=== PATIENT | female | born 1975 | race Hispanic/Latino ===

== ENCOUNTER 2019-02-02 08:06 | Inpatient (IN) | payer MEDICARE ==
--- NOTE | 2019-02-02 08:23 | Emergency Department Report ---
History of Present Illness - General Chief Complaint: Overdose Stated Complaint: OVERDOSE Time Seen by Provider: 02/02/19 08:06 Source: patient Mode of arrival: Stretcher Limitations: No Limitations, Altered Mental Status - History of Present Illness Initial Comments: Patient is a 43-year-old female presents to emergency with suicide attempt by overdose. Patient states that she took 20 tabs of 100 mg doxepin. She states she took them last night approximately 10/06/2012. Patient states she is tired. Patient states she took it in order to commit suicide. Patient states she's been depressed and under a lot of stress and wanted to . Patient states she is not sure who called ambulance. MD Complaint: intentional overdose -: Sudden Intent: suicide attempt Context: Intentional Overdose: relationship problems, financial issues Associated Symptoms: depression Treatments Prior to Arrival: none - Related Data Home Medications Medication Instructions Recorded Confirmed Last Taken Benztropine [Cogentin] 1 mg PO QHS 02/02/19 02/02/19 Unknown Divalproex ER [DepaKOTE ER] 1,000 mg PO QHS 02/02/19 02/02/19 Unknown Doxepin [SINEquan] 100 mg PO QHS 02/02/19 02/02/19 Unknown Allergies Allergy/AdvReac Type Severity Reaction Status Date / Time No Known Allergies Allergy Unverified 02/02/19 08:22 ED Review of Systems ROS: Stated complaint: OVERDOSE Other details as noted in HPI Constitutional: denies: chills, fever Eyes: denies: eye pain, eye discharge, vision change ENT: denies: ear pain, throat pain Respiratory: denies: cough, shortness of breath, wheezing Cardiovascular: denies: chest pain, palpitations Endocrine: no symptoms reported Gastrointestinal: denies: abdominal pain, nausea, diarrhea Genitourinary: denies: urgency, dysuria, discharge Musculoskeletal: denies: back pain, joint swelling, arthralgia Skin: denies: rash, lesions Neurological: denies: headache, weakness, paresthesias Psychiatric: denies: anxiety, depression Hematological/Lymphatic: denies: easy bleeding, easy bruising ED Past Medical Hx - Past Medical History Previous Medical History?: Yes Hx Psychiatric Treatment: Yes Additional medical history: [employer], privious sucide attempts - Surgical History Past Surgical History?: No - Family History Family history: no significant - Social History Smoking Status: Current Every Day Smoker Substance Use Type: None - Medications Home Medications: Home Medications Medication Instructions Recorded Confirmed Last Taken Type Benztropine [Cogentin] 1 mg PO QHS 02/02/19 02/02/19 Unknown History Divalproex ER [DepaKOTE ER] 1,000 mg PO QHS 02/02/19 02/02/19 Unknown History Doxepin [SINEquan] 100 mg PO QHS 02/02/19 02/02/19 Unknown History ED Physical Exam - General Limitations: No Limitations, Altered Mental Status General appearance: alert, in no apparent distress, lethargic (but arousable) - Head Head exam: Present: atraumatic, normocephalic - Eye Eye exam: Present: normal appearance, PERRL Pupils: Present: normal accommodation - ENT ENT exam: Present: mucous membranes dry - Neck Neck exam: Present: normal inspection - Respiratory Respiratory exam: Present: normal lung sounds bilaterally. Absent: respiratory distress - Cardiovascular Cardiovascular Exam: Present: regular rate, normal rhythm. Absent: systolic murmur, diastolic murmur, rubs, gallop - GI/Abdominal GI/Abdominal exam: Present: soft, normal bowel sounds - Extremities Exam Extremities exam: Present: normal inspection - Back Exam Back exam: Present: normal inspection - Neurological Exam Neurological exam: Present: oriented X3 - Expanded Neurological Exam Expanded Patient oriented to: Present: person, place, time Best Eye Response ([place]): (2) open to pain Best Motor Response ([place]): (6) obeys commands Best Verbal Response ([place]): (5) oriented Amee Total: 13 - Psychiatric Psychiatric exam: Present: depressed - Skin Skin exam: Present: warm, dry, intact, normal color. Absent: rash ED Course Vital Signs 02/02/19 02/02/19 02/02/19 08:09 08:11 08:16 Temperature 97.7 F 98.6 F Pulse Rate 102 H 96 H 95 H Respiratory 13 12 Rate Blood Pressure 153/98 153/98 O2 Sat by Pulse 95 95 Oximetry 02/02/19 02/02/19 02/02/19 08:30 08:46 09:00 Temperature Pulse Rate 101 H 93 H 87 Respiratory 14 13 11 L Rate Blood Pressure 144/96 144/98 141/100 O2 Sat by Pulse 93 98 100 Oximetry 02/02/19 02/02/1902/02/19 09:15 09:30 09:46 Temperature Pulse Rate 84 83 86 Respiratory 11 L 12 11 L Rate Blood Pressure 151/106 151/106 137/92 O2 Sat by Pulse 100 100 100 Oximetry 02/02/19 02/02/19 02/02/19 10:00 10:16 10:30 Temperature Pulse Rate 99 H 127 H 142 H Respiratory 16 24 20 Rate Blood Pressure 160/109 166/111 160/109 O2 Sat by Pulse 100 97 99 Oximetry 02/02/19 02/02/19 02/02/19 10:46 11:00 11:16 Temperature Pulse Rate 113 H 116 H 100 H Respiratory 17 15 12 Rate Blood Pressure 157/104 157/104 153/105 O2 Sat by Pulse 97 98 98 Oximetry 02/02/19 02/02/19 02/02/19 11:30 11:46 11:48 Temperature Pulse Rate 98 H 86 Respiratory 11 L 12 12 Rate Blood Pressure 154/98 147/93 O2 Sat by Pulse 99 100 100 Oximetry 02/02/19 12:02 Temperature Pulse Rate Respiratory 12 Rate Blood Pressure O2 Sat by Pulse 100 Oximetry - Reevaluation(s) Reevaluation #1: Initial evaluation done. Patient has overdosed on doxepin and poison control will be called. 1013 signed 02/02/19 08:06 MIGUEL SALINAS [facility] 1975 [id number] 02/02/19 08:15 - Nurse Note by JEYSON WING Acct Num: [id number] : 1975 Patient Age: 43 Called Poison Control at this time. Initial treatment for Doxepin 100mg, 20 cap intake at approx [id number] on 02/01/19 is Char[place]. Since pt is lethargic and therefore an aspiration risk, poison control recommends holding charcoal. Pt recommended to be a critical care admit. Pt at risk for ventricular dysrhythmia, widened QRS, seizures, initial hypertension the hypotension. Fluids to be given for hypotension, if not responding to fluids, Levophed is the first line v asopressor. Labs: ASA, tylenol, ETOH, and anion gap. 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 Baseling EKG needed. Spoke with Héctor at Poison Control. Notified Dr. Brown of these details, no new orders at this time. Received pt to ED1 pt came from [facility]. Pt awake, but lethargic, VSS, pt placed on equipment monitor phototypesetting, IV access attempted, EKG in progress. Pt reports taking "20" Doxepin at approx [phone] "last night". Pt reports being hearing impaired and states "I wanted to kill myself". Dr. Brown placed pt on 1013. Will continue to monitor pt. Initialized on 02/02/19 08:15 - END OF NOTE Reevaluation #2: discussed all results and plan of care with patient. Patient was admitted to the hospitalist service and into the ICU. 02/02/19 10:27 - Consultations Consultation #1: Hospitalist consulted for admission. Hospitalist to admit and assume care of patient. Bridging orders were placed 02/02/19 10:27 ED Medical Decision Making - Lab Data Result diagrams: 02/02/19 08:41 02/02/19 08:41 - EKG Data -: EKG Interpreted by Me EKG shows normal: sinus rhythm, axis, intervals, QRS complexes, ST-T waves Rate: normal - Medical Decision Making Patient is a 43-year-old female that presents emergency room with complaints of overdose doxepin. Patient lethargic. Poison control consulted. Based on pulse mitral recommendations patient was admitted to the hospitalist service and into the ICU for observation. Poison control recommendations Placed on chart. - Differential Diagnosis od, si. dep Critical Care Time: Yes Critical care attestation.: If time is entered above; I have spent that time in minutes in the direct care of this critically ill patient, excluding procedure time. Critical Care Time: 45 minutes ED Disposition Clinical Impression: Suicidal ideation Suicide attempt by substance overdose Qualifiers: Encounter type: initial encounter Qualified Code(s): T65.92XA - Toxic effect of unspecified substance, intentional self-harm, initial encounter Overdose Qualifiers: Encounter type: initial encounter Injury intent: intentional self-harm Qualified Code(s): T50.902A - Poisoning by unspecified drugs, medicaments and biological substances, intentional self-harm, initial encounter Disposition: 09 OP ADMIT IP TO THIS HOSP Is pt being admited?: Yes Does the pt Need Aspirin: No Condition: Critical Time of Disposition: 10:30
[2019-02-02 09:13] LABS: Hemoglobin 15.5 gm/dl (10.1-14.3); Mean Corpuscular HGB Conc 34 % (30-34); Mean Corpuscular Volume 91 fl (79-97); Red Blood Count 4.96 M/mm3 (3.65-5.03)
[2019-02-02 10:19] LABS: BUN/Creatinine Ratio 9; Blood Urea Nitrogen 6 mg/dL (7-17); Calcium 9.3 mg/dL (8.4-10.2); Hemolysis Index 37
[2019-02-02 10:20] LABS: Eosinophils % (Manual) 0 % (0.0-4.3); Total Cells Counted 100
[2019-02-02 10:21] LABS: Anisocytosis Few; Platelet Estimate Consistent w Auto; Poikilocytosis Few
[2019-02-02 10:22] LABS: Platelet Count 140 K/mm3 (140-440)
[2019-02-02 11:33] LABS: Bacteria,Urine 1+ /HPF (Negative); Bilirubin,Urine NEG (Negative); Blood,Urine NEG (Negative); Color,Urine Yellow (Yellow); Mucus,Urine FEW /HPF; Protein,Urine <15 mg/dL mg/dL (Negative); Urobilinogen,Urine < 2.0 mg/dL (<2.0)
[2019-02-02 11:38] LABS: Amphetamine Screen,Urine PRESUMPTIVE NEGATIVE; Benzodiazepines Screen,Urine PRESUMPTIVE NEGATIVE; Cannabinoid Screen,Urine PRESUMPTIVE NEGATIVE; Cocaine Screen,Urine PRESUMPTIVE NEGATIVE; Methadone Screen,Urine PRESUMPTIVE NEGATIVE; Opiate Screen,Urine PRESUMPTIVE NEGATIVE
--- NOTE | 2019-02-02 15:32 | History and Physical Report ---
History of Present Illness Date of examination: 02/02/19 Date of admission: 02/02/19 10:30 Chief complaint: Suicide attempt History of present illness: 43-year-old female with medical history significant for depression was presented to the emergency department by EMS for suicide attempt. Patient's was drowsy and was not able to give history. History is obtained per chart review and from ER doctor. Patient took twenty 100 mg doxepin pills with the intention of killing her self. Patient was depressed and trying to kill her self. No seizure activity or termers. Review of systems couldn't be obtained because of drowsiness. Past History Past Medical History: other (depression) Past Surgical History: Other (couldn't be obtained because of patient's drowsy) Social history: other (couldn't be obtained because of patient's drowsy) Family history: other (couldn't be obtained because of patient's drowsy) Medications and Allergies Allergies Allergy/AdvReac Type Severity Reaction Status Date / Time No Known Allergies Allergy Unverified 02/02/19 08:22 Home Medications Medication Instructions Recorded Confirmed Last Taken Type Benztropine [Cogentin] 1 mg PO QHS 02/02/19 02/02/19 Unknown History Divalproex ER [DepaKOTE ER] 1,000 mg PO QHS 02/02/19 02/02/19 Unknown History Doxepin [SINEquan] 100 mg PO QHS 02/02/19 02/02/19 Unknown History Review of Systems ROS unobtainable: due to mental status (couldn't be obtained because of patient's drowsy) Exam - Physical Exam Narrative exam: Not in cardiopulmonary distress. Patient is drowsy The patient is obese. Vital signs as documented. Head exam is unremarkable. No scleral icterus . Neck is without jugular venous distension, thyromegaly, or carotid bruits. Lungs are clear to auscultation. Cardiac exam reveals regular rate and Rhythm. Abdominal exam reveals normal bowel sounds, no masses, no organomegaly and no aortic enlargement. Extremities are nonedematous and both femoral and pedal pulses are normal. SENIOR BUSINESS MANAGER: Drowsy. No focal weakness. - Constitutional Vitals: Temp Pulse Resp BP Pulse Ox 98.6 F 86 12 147/93 100 02/02/19 08:16 02/02/19 11:46 02/02/19 12:02 02/02/19 11:46 02/02/19 12:02 Results - Labs CBC & Chem 7: 02/02/19 08:41 02/02/19 08:41 Labs: Laboratory Last Values WBC 5.8 K/mm3 (4.5-11.0) 02/02/19 08:41 RBC 4.96 M/mm3 (3.65-5.03) 02/02/19 08:41 Hgb 15.5 gm/dl (10.1-14.3) H 02/02/19 08:41 Hct 45.0 % (30.3-42.9) H 02/02/19 08:41 MCV 91 fl (79-97) 02/02/19 08:41 MCH 31 pg (28-32) 02/02/19 08:41 MCHC 34 % (30-34) 02/02/19 08:41 RDW 14.0 % (13.2-15.2) 02/02/19 08:41 Plt Count 140 K/mm3 (140-440) 02/02/19 08:41 Add Manual Diff Complete 02/02/19 08:41 Total Counted 100 02/02/19 08:41 Seg Neuts % (Manual) 59.0 % (40.0-70.0) 02/02/19 08:41 Band Neutrophils % 0 % 02/02/19 08:41 Lymphocytes % (Manual) 28.0 % (13.4-35.0) 02/02/19 08:41 Reactive Lymphs % (Man) 0 % 02/02/19 08:41 Monocytes % (Manual) 11.0 % (0.0-7.3) H 02/02/19 08:41 Eosinophils % (Manual) 0 % (0.0-4.3) 02/02/19 08:41 Basophils % (Manual) 2.0 % (0.0-1.8) H 02/02/19 08:41 Metamyelocytes % 0 % 02/02/19 08:41 Myelocytes % 0 % 02/02/19 08:41 Promyelocytes % 0 % 02/02/19 08:41 Blast Cells % 0 % 02/02/19 08:41 Nucleated RBC % Not Reportable 02/02/19 08:41 Seg Neutrophils # Man 0.0 K/mm3 (1.8-7.7) L 02/02/19 08:41 Band Neutrophils # 0.0 K/mm3 02/02/19 08:41 Lymphocytes # (Manual) 0.0 K/mm3 (1.2-5.4) L 02/02/19 08:41 Abs React Lymphs (Man) 0.0 K/mm3 02/02/19 08:41 Monocytes # (Manual) 0.0 K/mm3 (0.0-0.8) 02/02/19 08:41 Eosinophils # (Manual) 0.0 K/mm3 (0.0-0.4) 02/02/19 08:41 Basophils # (Manual) 0.0 K/mm3 (0.0-0.1) 02/02/19 08:41 Metamyelocytes # 0.0 K/mm3 02/02/19 08:41 Myelocytes # 0.0 K/mm3 02/02/19 08:41 Promyelocytes # 0.0 K/mm3 02/02/19 08:41 Blast Cells # 0.0 K/mm3 02/02/19 08:41 WBC Morphology Not Reportable 02/02/19 08:41 Hypersegmented Neuts Not Reportable 02/02/19 08:41 Hyposegmented Neuts Not Reportable 02/02/19 08:41 Hypogranular Neuts Not Reportable 02/02/19 08:41 Smudge Cells Not Reportable 02/02/19 08:41 Toxic Granulation Not Reportable 02/02/19 08:41 Toxic Vacuolation Not Reportable 02/02/19 08:41 Dohle Bodies Not Reportable 02/02/19 08:41 Pelger-Huet Anomaly Not Reportable 02/02/19 08:41 Sadie Rods Not Reportable 02/02/19 08:41 Platelet Estimate Consistent w auto 02/02/19 08:41 Clumped Platelets Not Reportable 02/02/19 08:41 Plt Clumps, EDTA Not Reportable 02/02/19 08:41 Large Platelets Not Reportable 02/02/19 08:41 Giant Platelets Not Reportable 02/02/19 08:41 Platelet Satelliting Not Reportable 02/02/19 08:41 Plt Morphology Comment Not Reportable 02/02/19 08:41 RBC Morphology Not Reportable 02/02/19 08:41 Dimorphic RBCs Not Reportable 02/02/19 08:41 Polychromasia Not Reportable 02/02/19 08:41 Hypochromasia Not Reportable 02/02/19 08:41 Poikilocytosis Few 02/02/19 08:41 Anisocytosis Few 02/02/19 08:41 Microcytosis Not Reportable 02/02/19 08:41 Macrocytosis Not Reportable 02/02/19 08:41 Spherocytes Not Reportable 02/02/19 08:41 Pappenheimer Bodies Not Reportable 02/02/19 08:41 Sickle Cells Not Reportable 02/02/19 08:41 Target Cells Not Reportable 02/02/19 08:41 Tear Drop Cells Not Reportable 02/02/19 08:41 Ovalocytes Not Reportable 02/02/19 08:41 Helmet Cells Not Reportable 02/02/19 08:41 [place] Bodies Not Reportable 02/02/19 08:41 Marlette Rings Not Reportable 02/02/19 08:41 Hi Hat Cells Not Reportable 02/02/19 08:41 Bite Cells Not Reportable 02/02/19 08:41 Crenated Cell Not Reportable 02/02/19 08:41 Elliptocytes Not Reportable 02/02/19 08:41 Acanthocytes (Spur) Not Reportable 02/02/19 08:41 Rouleaux Not Reportable 02/02/19 08:41 Hemoglobin C Crystals Not Reportable 02/02/19 08:41 Schistocytes Not Reportable 02/02/19 08:41 Malaria parasites Not Reportable 02/02/19 08:41 Homero Bodies Not Reportable 02/02/19 08:41 Hem Pathologist Commnt No 02/02/19 08:41 Sodium 139 mmol/L (137-145) 02/02/19 08:41 Potassium 3.9 mmol/L (3.6-5.0) 02/02/19 08:41 Chloride 102.4 mmol/L (98-107) 02/02/19 08:41 Carbon Dioxide 21 mmol/L (22-30) L 02/02/19 08:41 Anion Gap 20 mmol/L 02/02/19 08:41 BUN 6 mg/dL (7-17) L 02/02/19 08:41 Creatinine 0.7 mg/dL (0.7-1.2) 02/02/19 08:41 Estimated GFR > 60 ml/min 02/02/19 08:41 BUN/Creatinine Ratio 9 % 02/02/19 08:41 Glucose 108 mg/dL (65-100) H 02/02/19 08:41 Osmolality 293 Mosm/kg 02/02/19 Unknown Calcium 9.3 mg/dL (8.4-10.2) 02/02/19 08:41 HCG, Qual Negative (Negative) 02/02/19 08:41 Urine Color Yellow (Yellow) 02/02/19 Unknown Urine Turbidity Clear (Clear) 02/02/19 Unknown Urine pH 7.0 (5.0-7.0) 02/02/19 Unknown Ur Specific [place] 1.008 (1.003-1.030) 02/02/19 Unknown Urine Protein <15 mg/dl mg/dL (Negative) 02/02/19 Unknown Urine Glucose (UA) Neg mg/dL (Negative) 02/02/19 Unknown Urine Ketones Tr mg/dL (Negative) 02/02/19 Unknown Urine Blood Neg (Negative) 02/02/19 Unknown Urine Nitrite Neg (Negative) 02/02/19 Unknown Urine Bilirubin Neg (Negative) 02/02/19 Unknown Urine Urobilinogen < 2.0 mg/dL (<2.0) 02/02/19 Unknown Ur Leukocyte Esterase Neg (Negative) 02/02/19 Unknown Urine WBC (Auto) 2.0 /HPF (0.0-6.0) 02/02/19 Unknown Urine RBC (Auto) 1.0 /HPF (0.0-6.0) 02/02/19 Unknown U Epithel Cells (Auto) 3.0 /HPF (0-13.0) 02/02/19 Unknown Urine Bacteria (Auto) 1+ /HPF (Negative) 02/02/19 Unknown Urine Mucus Few /HPF 02/02/19 Unknown Salicylates < 0.3 mg/dL (2.8-20.0) L 02/02/19 08:41 Urine Opiates Screen Presumptive negative 02/02/19 Unknown Urine Methadone Screen Presumptive negative 02/02/19 Unknown Acetaminophen < 5.0 ug/mL (10.0-30.0) L 02/02/19 08:41 Ur Barbiturates Screen Presumptive negative 02/02/19 Unknown Ur Phencyclidine Scrn Presumptive negative 02/02/19 Unknown Ur Amphetamines Screen Presumptive negative 02/02/19 Unknown U Benzodiazepines Scrn Presumptive negative 02/02/19 Unknown Urine Cocaine Screen Presumptive negative 02/02/19 Unknown U Marijuana (THC) Screen Presumptive negative 02/02/19 Unknown Drugs of Abuse Note Disclamer 02/02/19 Unknown Plasma/Serum Alcohol < 0.01 % (0-0.07) 02/02/19 08:41 Assessment and Plan Assessment and plan: TCA overdose - We will monitor the patient on cardiac monitoring for QT and arrhythmia, EKG normal - Monitor for seizure, blood pressure fluctuation, tremers - ED doctor discussed with poison control and recommend ICU monitoring for 23 hours - We'll do UDS, CT head for drowsiness - Chest x-ray to rule out aspiration Suicidal attempt - Urgent Mental health consult placed Depression - Follow and his recommendation Due to prophylaxis - Lovenox Disposition - Admit to ICU Advance Directives: Yes VTE prophylaxis?: Chemical Plan of care discussed with patient/family: Yes
--- NOTE | 2019-02-02 16:47 | Cat Scan Report ---
PROCEDURE: CT HEAD/BRAIN WO CON TECHNIQUE: Computerized tomography of the head was performed without contrast material. Imaging was obtained in axial increments. CT DOSE LENGTH PRODUCT: 805.4 mGycm HISTORY: drowsy COMPARISONS: None . FINDINGS: The ventricular system is normal in size and configuration. There is no evidence for parenchymal volu me loss. There is no evidence for mass lesion, mass effect, midline shift, acute intracranial hemorrhage, or a cute ischemia/ infarction. No evidence for acute skull fracture is seen. No abnormality in the overlying scalp soft tissues is s een. Visualized paranasal sinuses are clear. IMPRESSION: No acute intracranial process noted. This document is electronically signed by Kellie Coffman MD., February 02 2019 04:45:16 PM ET
--- NOTE | 2019-02-02 17:45 | XRay Report ---
PROCEDURE: XR CHEST 1V AP HISTORY: Altered mental status FINDINGS: Single frontal view of the chest was acquired. The heart is normal in size. There is a left basilar infiltrate, atelectasis versus pneumonia. The right lung is clear. IMPRESSION: Left basilar infiltrate This document is electronically signed by Tyler Jensen MD., February 02 2019 05:43:47 PM ET
[2019-02-03 02:26] LABS: Alanine Aminotransferase 9 units/L (7-56); Albumin 3.8 g/dL (3.9-5); BUN/Creatinine Ratio 8; Blood Urea Nitrogen 6 mg/dL (7-17); Calcium 9.1 mg/dL (8.4-10.2); Hemolysis Index 8
[2019-02-03 05:34] LABS: BUN/Creatinine Ratio 9; Blood Urea Nitrogen 6 mg/dL (7-17); Calcium 9.1 mg/dL (8.4-10.2); Hemolysis Index 141
[2019-02-03 08:56] LABS: Amphetamine Screen,Urine PRESUMPTIVE NEGATIVE; Benzodiazepines Screen,Urine PRESUMPTIVE NEGATIVE; Cannabinoid Screen,Urine PRESUMPTIVE NEGATIVE; Cocaine Screen,Urine PRESUMPTIVE NEGATIVE; Methadone Screen,Urine PRESUMPTIVE NEGATIVE; Opiate Screen,Urine PRESUMPTIVE NEGATIVE
--- NOTE | 2019-02-03 10:01 | Progress Note ---
Assessment and Plan Assessment and plan: TCA overdose - We will monitor the patient on cardiac monitoring for QT and arrhythmia, EKG normal - Monitor for seizure, blood pressure fluctuation, tremers - poison control and recommend ICU monitoring for 23 hours, 23 hours past and patient is transferred to medical floor with remote telemetry -UDS was negative, CT head was negative, - Chest x-ray showed right basilar infiltrate, no fever, no leukocytosis, no cough; will monitor, noted to start antibiotics for now Suicidal attempt - Urgent Mental health consult placed - Patient on 1012, need to be 1:1 - Mental health po[place] inspector recommend inpatient psych transfer when stable Depression - Follow mental health recommendation Due to prophylaxis - Lovenox Disposition - Transferred to medical with remote telemetry History Interval history: Patient was seen and evaluated this morning, patient says she wants to go home. Patient states she is going to kill herself. Hospitalist Physical - Physical exam Narrative exam: Not in cardiopulmonary distress. Patient is drowsy The patient is obese. Vital signs as documented. Head exam is unremarkable. No scleral icterus . Neck is without jugular venous distension, thyromegaly, or carotid bruits. Lungs are clear to auscultation. Cardiac exam reveals regular rate and Rhythm. Abdominal exam reveals normal bowel sounds, no masses, no organomegaly and no aortic enlargement. Extremities are nonedematous and both femoral and pedal pulses are normal. PEDIATRIC CLINICAL NURSE SPECIALIST: Drowsy. No focal weakness. - Constitutional Vitals: Temp Pulse Resp BP Pulse Ox 98.3 F 97 H 18 130/88 98 02/03/19 07:56 02/03/19 07:56 02/03/19 07:56 02/03/19 07:56 02/03/19 07:56 Results - Labs CBC & Chem 7: 02/02/19 08:41 02/03/19 05:04 Labs: Laboratory Last Values WBC 5.8 K/mm3 (4.5-11.0) 02/02/19 08:41 RBC 4.96 M/mm3 (3.65-5.03) 02/02/19 08:41 Hgb 15.5 gm/dl (10.1-14.3) H 02/02/19 08:41 Hct 45.0 % (30.3-42.9) H 02/02/19 08:41 MCV 91 fl (79-97) 02/02/19 08:41 MCH 31 pg (28-32) 02/02/19 08:41 MCHC 34 % (30-34) 02/02/19 08:41 RDW 14.0 % (13.2-15.2) 02/02/19 08:41 Plt Count 140 K/mm3 (140-440) 02/02/19 08:41 Add Manual Diff Complete 02/02/19 08:41 Total Counted 100 02/02/19 08:41 Seg Neuts % (Manual) 59.0 % (40.0-70.0) 02/02/19 08:41 Band Neutrophils % 0 % 02/02/19 08:41 Lymphocytes % (Manual) 28.0 % (13.4-35.0) 02/02/19 08:41 Reactive Lymphs % (Man) 0 % 02/02/19 08:41 Monocytes % (Manual) 11.0 % (0.0-7.3) H 02/02/19 08:41 Eosinophils % (Manual) 0 % (0.0-4.3) 02/02/19 08:41 Basophils % (Manual) 2.0 % (0.0-1.8) H 02/02/19 08:41 Metamyelocytes % 0 % 02/02/19 08:41 Myelocytes % 0 % 02/02/19 08:41 Promyelocytes % 0 % 02/02/19 08:41 Blast Cells % 0 % 02/02/19 08:41 Nucleated RBC % Not Reportable 02/02/19 08:41 Seg Neutrophils # Man 0.0 K/mm3 (1.8-7.7) L 02/02/19 08:41 Band Neutrophils # 0.0 K/mm3 02/02/19 08:41 Lymphocytes # (Manual) 0.0 K/mm3 (1.2-5.4) L 02/02/19 08:41 Abs React Lymphs (Man) 0.0 K/mm3 02/02/19 08:41 Monocytes # (Manual) 0.0 K/mm3 (0.0-0.8) 02/02/19 08:41 Eosinophils # (Manual) 0.0 K/mm3 (0.0-0.4) 02/02/19 08:41 Basophils # (Manual) 0.0 K/mm3 (0.0-0.1) 02/02/19 08:41 Metamyelocytes # 0.0 K/mm3 02/02/19 08:41 Myelocytes # 0.0 K/mm3 02/02/19 08:41 Promyelocytes # 0.0 K/mm3 02/02/19 08:41 Blast Cells # 0.0 K/mm3 02/02/19 08:41 WBC Morphology Not Reportable 02/02/19 08:41 Hypersegmented Neuts Not Reportable 02/02/19 08:41 Hyposegmented Neuts Not Reportable 02/02/19 08:41 Hypogranular Neuts Not Reportable 02/02/19 08:41 Smudge Cells Not Reportable 02/02/19 08:41 Toxic Granulation Not Reportable 02/02/19 08:41 Toxic Vacuolation Not Reportable 02/02/19 08:41 Dohle Bodies Not Reportable 02/02/19 08:41 Pelger-Huet Anomaly Not Reportable 02/02/19 08:41 Sadie Rods Not Reportable 02/02/19 08:41 Platelet Estimate Consistent w auto 02/02/19 08:41 Clumped Platelets Not Reportable 02/02/19 08:41 Plt Clumps, EDTA Not Reportable 02/02/19 08:41 Large Platelets Not Reportable 02/02/19 08:41 Giant Platelets Not Reportable 02/02/19 08:41 Platelet Satelliting Not Reportable 02/02/19 08:41 Plt Morphology Comment Not Reportable 02/02/19 08:41 RBC Morphology Not Reportable 02/02/19 08:41 Dimorphic RBCs Not Reportable 02/02/19 08:41 Polychromasia Not Reportable 02/02/19 08:41 Hypochromasia Not Reportable 02/02/19 08:41 Poikilocytosis Few 02/02/19 08:41 Anisocytosis Few 02/02/19 08:41 Microcytosis Not Reportable 02/02/19 08:41 Macrocytosis Not Reportable 02/02/19 08:41 Spherocytes Not Reportable 02/02/19 08:41 Pappenheimer Bodies Not Reportable 02/02/19 08:41 Sickle Cells Not Reportable 02/02/19 08:41 Target Cells Not Reportable 02/02/19 08:41 Tear Drop Cells Not Reportable 02/02/19 08:41 Ovalocytes Not Reportable 02/02/19 08:41 Helmet Cells Not Reportable 02/02/19 08:41 Carbajal-[place] Bodies Not Reportable 02/02/19 08:41 [place] Rings Not Reportable 02/02/19 08:41 [place] Cells Not Reportable 02/02/19 08:41 Bite Cells Not Reportable 02/02/19 08:41 Crenated Cell Not Reportable 02/02/19 08:41 Elliptocytes Not Reportable 02/02/19 08:41 Acanthocytes (Spur) Not Reportable 02/02/19 08:41 Rouleaux Not Reportable 02/02/19 08:41 Hemoglobin C Crystals Not Reportable 02/02/19 08:41 Schistocytes Not Reportable 02/02/19 08:41 Malaria parasites Not Reportable 02/02/19 08:41 Homero Bodies Not Reportable 02/02/19 08:41 Hem Pathologist Commnt No 02/02/19 08:41 Sodium 139 mmol/L (137-145) 02/03/19 05:04 Potassium 4.3 mmol/L (3.6-5.0) 02/03/19 05:04 Chloride 102.3 mmol/L (98-107) 02/03/19 05:04 Carbon Dioxide 23 mmol/L (22-30) 02/03/19 05:04 Anion Gap 18 mmol/L 02/03/19 05:04 BUN 6 mg/dL (7-17) L 02/03/19 05:04 Creatinine 0.7 mg/dL (0.7-1.2) 02/03/19 05:04 Estimated GFR > 60 ml/min 02/03/19 05:04 BUN/Creatinine Ratio 9 % 02/03/19 05:04 Glucose 86 mg/dL (65-100) 02/03/19 05:04 Osmolality 288 Mosm/kg 02/03/19 01:46 Calcium 9.1 mg/dL (8.4-10.2) 02/03/19 05:04 Total Bilirubin 0.70 mg/dL (0.1-1.2) 02/03/19 01:46 AST 17 units/L (5-40) 02/03/19 01:46 ALT 9 units/L (7-56) 02/03/19 01:46 Alkaline Phosphatase 73 units/L (35-129) 02/03/19 01:46 Total Protein 7.0 g/dL (6.3-8.2) 02/03/19 01:46 Albumin 3.8 g/dL (3.9-5) L 02/03/19 01:46 Albumin/Globulin Ratio 1.2 % 02/03/19 01:46 HCG, Qual Negative (Negative) 02/02/19 08:41 Urine Color Yellow (Yellow) 02/02/19 Unknown Urine Turbidity Clear (Clear) 02/02/19 Unknown Urine pH 7.0 (5.0-7.0) 02/02/19 Unknown Ur Specific [place] 1.008 (1.003-1.030) 02/02/19 Unknown Urine Protein <15 mg/dl mg/dL (Negative) 02/02/19 Unknown Urine Glucose (UA) Neg mg/dL (Negative) 02/02/19 Unknown Urine Ketones Tr mg/dL (Negative) 02/02/19 Unknown Urine Blood Neg (Negative) 02/02/19 Unknown Urine Nitrite Neg (Negative) 02/02/19 Unknown Urine Bilirubin Neg (Negative) 02/02/19 Unknown Urine Urobilinogen < 2.0 mg/dL (<2.0) 02/02/19 Unknown Ur Leukocyte Esterase Neg (Negative) 02/02/19 Unknown Urine WBC (Auto) 2.0 /HPF (0.0-6.0) 02/02/19 Unknown Urine RBC (Auto) 1.0 /HPF (0.0-6.0) 02/02/19 Unknown U Epithel Cells (Auto) 3.0 /HPF (0-13.0) 02/02/19 Unknown Urine Bacteria (Auto) 1+ /HPF (Negative) 02/02/19 Unknown Urine Mucus Few /HPF 02/02/19 Unknown Salicylates < 0.3 mg/dL (2.8-20.0) L 02/02/19 08:41 Urine Opiates Screen Presumptive negative 02/03/19 08:30 Urine Methadone Screen Presumptive negative 02/03/19 08:30 Acetaminophen < 5.0 ug/mL (10.0-30.0) L 02/02/19 08:41 Ur Barbiturates Screen Presumptive negative 02/03/19 08:30 Ur Phencyclidine Scrn Presumptive negative 02/03/19 08:30 Ur Amphetamines Screen Presumptive negative 02/03/19 08:30 U Benzodiazepines Scrn Presumptive negative 02/03/19 08:30 Urine Cocaine Screen Presumptive negative 02/03/19 08:30 U Marijuana (THC) Screen Presumptive negative 02/03/19 08:30 Drugs of Abuse Note Disclamer 02/03/19 08:30 Plasma/Serum Alcohol < 0.01 % (0-0.07) 02/02/19 08:41 Active Medications - Current Medications Current Medications: Generic Name Dose Route Start Last Admin Trade Name Freq PRN Reason Stop Dose Admin Dextrose/Sodium Chloride 1,000 mls @ 75 mls/hr 02/02/19 16:00 D5/0.45ns IV DIRECT PERLITA
[2019-02-03] MEDS: D5/0.45NS 1,000 ML IV SCH (15:23)
[2019-02-04] MEDS: D5/0.45NS 1,000 ML IV SCH ×2 (06:17→17:24)
--- NOTE | 2019-02-04 11:04 | Progress Note ---
Assessment and Plan Assessment and plan: TCA overdose - We will monitor the patient on cardiac monitoring for QT and arrhythmia, EKG normal - Monitor for seizure, blood pressure fluctuation, tremers - poison control and recommend ICU monitoring for 23 hours, 23 hours past and patient is transferred to medical floor with remote telemetry -UDS was negative, CT head was negative, - Chest x-ray showed right basilar infiltrate, no fever, no leukocytosis, no cough; will monitor, noted to start antibiotics for now Suicidal attempt - Patient on 101, need to be 1:1 - Mental health process manufacturing engineer recommend inpatient psych transferwhen stable Depression - Follow mental health recommendation Due to prophylaxis - Lovenox Disposition - patient is medically stable for inpatient psych transfer. History Interval history: Patient was seen and evaluated this morning, patient was alert and oriented. Hospitalist Physical - Physical exam Narrative exam: Not in cardiopulmonary distress. Patient is drowsy The patient is obese. Vital signs as documented. Head exam is unremarkable. No scleral icterus . Neck is without jugular venous distension, thyromegaly, or carotid bruits. Lungs are clear to auscultation. Cardiac exam reveals regular rate and Rhythm. Abdominal exam reveals normal bowel sounds, no masses, no organomegaly and no aortic enlargement. Extremities are nonedematous and both femoral and pedal pulses are normal. LIGHTING SPECIALIST: Drowsy. No focal weakness. - Constitutional Vitals: Temp Pulse Resp BP Pulse Ox 98.6 F 97 H 17 149/103 96 02/03/19 12:44 02/03/19 12:44 02/03/19 21:38 02/03/19 12:44 02/03/19 21:38 Results - Labs CBC & Chem 7: 02/02/19 08:41 02/03/19 05:04 Labs: Laboratory Last Values WBC 5.8 K/mm3 (4.5-11.0) 02/02/19 08:41 RBC 4.96 M/mm3 (3.65-5.03) 02/02/19 08:41 Hgb 15.5 gm/dl (10.1-14.3) H 02/02/19 08:41 Hct 45.0 % (30.3-42.9) H 02/02/19 08:41 MCV 91 fl (79-97) 02/02/19 08:41 MCH 31 pg (28-32) 02/02/19 08:41 MCHC 34 % (30-34) 02/02/19 08:41 RDW 14.0 % (13.2-15.2) 02/02/19 08:41 Plt Count 140 K/mm3 (140-440) 02/02/19 08:41 Add Manual Diff Complete 02/02/19 08:41 Total Counted 100 02/02/19 08:41 Seg Neuts % (Manual) 59.0 % (40.0-70.0) 02/02/19 08:41 Band Neutrophils % 0 % 02/02/19 08:41 Lymphocytes % (Manual) 28.0 % (13.4-35.0) 02/02/19 08:41 Reactive Lymphs % (Man) 0 % 02/02/19 08:41 Monocytes % (Manual) 11.0 % (0.0-7.3) H 02/02/19 08:41 Eosinophils % (Manual) 0 % (0.0-4.3) 02/02/19 08:41 Basophils % (Manual) 2.0 % (0.0-1.8) H 02/02/19 08:41 Metamyelocytes % 0 % 02/02/19 08:41 Myelocytes % 0 % 02/02/19 08:41 Promyelocytes % 0 % 02/02/19 08:41 Blast Cells % 0 % 02/02/19 08:41 Nucleated RBC % Not Reportable 02/02/19 08:41 Seg Neutrophils # Man 0.0 K/mm3 (1.8-7.7) L 02/02/19 08:41 Band Neutrophils # 0.0 K/mm3 02/02/19 08:41 Lymphocytes # (Manual) 0.0 K/mm3 (1.2-5.4) L 02/02/19 08:41 Abs React Lymphs (Man) 0.0 K/mm3 02/02/19 08:41 Monocytes # (Manual) 0.0 K/mm3 (0.0-0.8) 02/02/19 08:41 Eosinophils # (Manual) 0.0 K/mm3 (0.0-0.4) 02/02/19 08:41 Basophils # (Manual) 0.0 K/mm3 (0.0-0.1) 02/02/19 08:41 Metamyelocytes # 0.0 K/mm3 02/02/19 08:41 Myelocytes # 0.0 K/mm3 02/02/19 08:41 Promyelocytes # 0.0 K/mm3 02/02/19 08:41 Blast Cells # 0.0 K/mm3 02/02/19 08:41 WBC Morphology Not Reportable 02/02/19 08:41 Hypersegmented Neuts Not Reportable 02/02/19 08:41 Hyposegmented Neuts Not Reportable 02/02/19 08:41 Hypogranular Neuts Not Reportable 02/02/19 08:41 Smudge Cells Not Reportable 02/02/19 08:41 Toxic Granulation Not Reportable 02/02/19 08:41 Toxic Vacuolation Not Reportable 02/02/19 08:41 Dohle Bodies Not Reportable 02/02/19 08:41 Pelger-Huet Anomaly Not Reportable 02/02/19 08:41 Sadie Rods Not Reportable 02/02/19 08:41 Platelet Estimate Consistent w auto 02/02/19 08:41 Clumped Platelets Not Reportable 02/02/19 08:41 Plt Clumps, EDTA Not Reportable 02/02/19 08:41 Large Platelets Not Reportable 02/02/19 08:41 Giant Platelets Not Reportable 02/02/19 08:41 Platelet Satelliting Not Reportable 02/02/19 08:41 Plt Morphology Comment Not Reportable 02/02/19 08:41 RBC Morphology Not Reportable 02/02/19 08:41 Dimorphic RBCs Not Reportable 02/02/19 08:41 Polychromasia Not Reportable 02/02/19 08:41 Hypochromasia Not Reportable 02/02/19 08:41 Poikilocytosis Few 02/02/19 08:41 Anisocytosis Few 02/02/19 08:41 Microcytosis Not Reportable 02/02/19 08:41 Macrocytosis Not Reportable 02/02/19 08:41 Spherocytes Not Reportable 02/02/19 08:41 Pappenheimer Bodies Not Reportable 02/02/19 08:41 Sickle Cells Not Reportable 02/02/19 08:41 Target Cells Not Reportable 02/02/19 08:41 Tear Drop Cells Not Reportable 02/02/19 08:41 Ovalocytes Not Reportable 02/02/19 08:41 Helmet Cells Not Reportable 02/02/19 08:41 Carbajal-[place] Bodies Not Reportable 02/02/19 08:41 [place] Rings Not Reportable 02/02/19 08:41 [place] Cells Not Reportable 02/02/19 08:41 Bite Cells Not Reportable 02/02/19 08:41 Crenated Cell Not Reportable 02/02/19 08:41 Elliptocytes Not Reportable 02/02/19 08:41 Acanthocytes (Spur) Not Reportable 02/02/19 08:41 Rouleaux Not Reportable 02/02/19 08:41 Hemoglobin C Crystals Not Reportable 02/02/19 08:41 Schistocytes Not Reportable 02/02/19 08:41 Malaria parasites Not Reportable 02/02/19 08:41 Homero Bodies Not Reportable 02/02/19 08:41 Hem Pathologist Commnt No 02/02/19 08:41 Sodium 139 mmol/L (137-145) 02/03/19 05:04 Potassium 4.3 mmol/L (3.6-5.0) 02/03/19 05:04 Chloride 102.3 mmol/L (98-107) 02/03/19 05:04 Carbon Dioxide 23 mmol/L (22-30) 02/03/19 05:04 Anion Gap 18 mmol/L 02/03/19 05:04 BUN 6 mg/dL (7-17) L 02/03/19 05:04 Creatinine 0.7 mg/dL (0.7-1.2) 02/03/19 05:04 Estimated GFR > 60 ml/min 02/03/19 05:04 BUN/Creatinine Ratio 9 % 02/03/19 05:04 Glucose 86 mg/dL (65-100) 02/03/19 05:04 Osmolality 288 Mosm/kg 02/03/19 01:46 Calcium 9.1 mg/dL (8.4-10.2) 02/03/19 05:04 Total Bilirubin 0.70 mg/dL (0.1-1.2) 02/03/19 01:46 AST 17 units/L (5-40) 02/03/19 01:46 ALT 9 units/L (7-56) 02/03/19 01:46 Alkaline Phosphatase 73 units/L (35-129) 02/03/19 01:46 Total Protein 7.0 g/dL (6.3-8.2) 02/03/19 01:46 Albumin 3.8 g/dL (3.9-5) L 02/03/19 01:46 Albumin/Globulin Ratio 1.2 % 02/03/19 01:46 HCG, Qual Negative (Negative) 02/02/19 08:41 Urine Color Yellow (Yellow) 02/02/19 Unknown Urine Turbidity Clear (Clear) 02/02/19 Unknown Urine pH 7.0 (5.0-7.0) 02/02/19 Unknown Ur Specific [place] 1.008 (1.003-1.030) 02/02/19 Unknown Urine Protein <15 mg/dl mg/dL (Negative) 02/02/19 Unknown Urine Glucose (UA) Neg mg/dL (Negative) 02/02/19 Unknown Urine Ketones Tr mg/dL (Negative) 02/02/19 Unknown Urine Blood Neg (Negative) 02/02/19 Unknown Urine Nitrite Neg (Negative) 02/02/19 Unknown Urine Bilirubin Neg (Negative) 02/02/19 Unknown Urine Urobilinogen < 2.0 mg/dL (<2.0) 02/02/19 Unknown Ur Leukocyte Esterase Neg (Negative) 02/02/19 Unknown Urine WBC (Auto) 2.0 /HPF (0.0-6.0) 02/02/19 Unknown Urine RBC (Auto) 1.0 /HPF (0.0-6.0) 02/02/19 Unknown U Epithel Cells (Auto) 3.0 /HPF (0-13.0) 02/02/19 Unknown Urine Bacteria (Auto) 1+ /HPF (Negative) 02/02/19 Unknown Urine Mucus Few /HPF 02/02/19 Unknown Salicylates < 0.3 mg/dL (2.8-20.0) L 02/02/19 08:41 Urine Opiates Screen Presumptive negative 02/03/19 08:30 Urine Methadone Screen Presumptive negative 02/03/19 08:30 Acetaminophen < 5.0 ug/mL (10.0-30.0) L 02/02/19 08:41 Ur Barbiturates Screen Presumptive negative 02/03/19 08:30 Ur Phencyclidine Scrn Presumptive negative 02/03/19 08:30 Ur Amphetamines Screen Presumptive negative 02/03/19 08:30 U Benzodiazepines Scrn Presumptive negative 02/03/19 08:30 Urine Cocaine Screen Presumptive negative 02/03/19 08:30 U Marijuana (THC) Screen Presumptive negative 02/03/19 08:30 Drugs of Abuse Note Disclamer 02/03/19 08:30 Plasma/Serum Alcohol < 0.01 % (0-0.07) 02/02/19 08:41 Active Medications - Current Medications Current Medications: Generic Name Dose Route Start Last Admin Trade Name Freq PRN Reason Stop Dose Admin Dextrose/Sodium Chloride 1,000 mls @ 75 mls/hr 02/02/19 16:00 02/04/19 06:17 D5/0.45ns IV 75 mls/hr DIRECT PERLITA Administration
[2019-02-05] MEDS: D5/0.45NS 1,000 ML IV SCH (07:01)
--- NOTE | 2019-02-05 08:06 | Progress Note ---
Assessment and Plan Assessment and plan: 43-year-old female with medical history significant for depression was presented to the emergency department by EMS for suicide attempt. Patient's was drowsy and was not able to give history. History is obtained per chart review and from ER doctor. Patient took twenty 100 mg doxepin pills with the intention of killing her self. Patient was depressed and trying to kill her self. No seizure activity or termers. TCA overdose - We will monitor the patient on cardiac monitoring for QT and arrhythmia, EKG normal - Monitor for seizure, blood pressure fluctuation, tremers - poison control and recommend ICU monitoring for 23 hours, 23 hours past and patient is transferred to medical floor with remote telemetry -UDS was negative, CT head was negative, - Chest x-ray showed right basilar infiltrate, no fever, no leukocytosis, no cough; will monitor, noted to start antibiotics for now Suicidal attempt - Patient on 1012, need to be 1:1 - Mental health library media technician recommend inpatient psych transferwhen stable Depression - Follow mental health recommendation Due to prophylaxis - Lovenox Disposition - patient is medically stable for inpatient psych transfer. Hospitalist Physical - Constitutional Vitals: Temp Pulse Resp BP Pulse Ox 98.3 F 85 16 133/86 93 02/04/19 22:23 02/04/19 22:23 02/04/19 22:23 02/04/19 22:23 02/04/19 22:23 Results - Labs CBC & Chem 7: 02/02/19 08:41 02/03/19 05:04 Labs: Laboratory Last Values WBC 5.8 K/mm3 (4.5-11.0) 02/02/19 08:41 RBC 4.96 M/mm3 (3.65-5.03) 02/02/19 08:41 Hgb 15.5 gm/dl (10.1-14.3) H 02/02/19 08:41 Hct 45.0 % (30.3-42.9) H 02/02/19 08:41 MCV 91 fl (79-97) 02/02/19 08:41 MCH 31 pg (28-32) 02/02/19 08:41 MCHC 34 % (30-34) 02/02/19 08:41 RDW 14.0 % (13.2-15.2) 02/02/19 08:41 Plt Count 140 K/mm3 (140-440) 02/02/19 08:41 Add Manual Diff Complete 02/02/19 08:41 Total Counted 100 02/02/19 08:41 Seg Neuts % (Manual) 59.0 % (40.0-70.0) 02/02/19 08:41 Band Neutrophils % 0 % 02/02/19 08:41 Lymphocytes % (Manual) 28.0 % (13.4-35.0) 02/02/19 08:41 Reactive Lymphs % (Man) 0 % 02/02/19 08:41 Monocytes % (Manual) 11.0 % (0.0-7.3) H 02/02/19 08:41 Eosinophils % (Manual) 0 % (0.0-4.3) 02/02/19 08:41 Basophils % (Manual) 2.0 % (0.0-1.8) H 02/02/19 08:41 Metamyelocytes % 0 % 02/02/19 08:41 Myelocytes % 0 % 02/02/19 08:41 Promyelocytes % 0 % 02/02/19 08:41 Blast Cells % 0 % 02/02/19 08:41 Nucleated RBC % Not Reportable 02/02/19 08:41 Seg Neutrophils # Man 0.0 K/mm3 (1.8-7.7) L 02/02/19 08:41 Band Neutrophils # 0.0 K/mm3 02/02/19 08:41 Lymphocytes # (Manual) 0.0 K/mm3 (1.2-5.4) L 02/02/19 08:41 Abs React Lymphs (Man) 0.0 K/mm3 02/02/19 08:41 Monocytes # (Manual) 0.0 K/mm3 (0.0-0.8) 02/02/19 08:41 Eosinophils # (Manual) 0.0 K/mm3 (0.0-0.4) 02/02/19 08:41 Basophils # (Manual) 0.0 K/mm3 (0.0-0.1) 02/02/19 08:41 Metamyelocytes # 0.0 K/mm3 02/02/19 08:41 Myelocytes # 0.0 K/mm3 02/02/19 08:41 Promyelocytes # 0.0 K/mm3 02/02/19 08:41 Blast Cells # 0.0 K/mm3 02/02/19 08:41 WBC Morphology Not Reportable 02/02/19 08:41 Hypersegmented Neuts Not Reportable 02/02/19 08:41 Hyposegmented Neuts Not Reportable 02/02/19 08:41 Hypogranular Neuts Not Reportable 02/02/19 08:41 Smudge Cells Not Reportable 02/02/19 08:41 Toxic Granulation Not Reportable 02/02/19 08:41 Toxic Vacuolation Not Reportable 02/02/19 08:41 Dohle Bodies Not Reportable 02/02/19 08:41 Pelger-Huet Anomaly Not Reportable 02/02/19 08:41 Sadie Rods Not Reportable 02/02/19 08:41 Platelet Estimate Consistent w auto 02/02/19 08:41 Clumped Platelets Not Reportable 02/02/19 08:41 Plt Clumps, EDTA Not Reportable 02/02/19 08:41 Large Platelets Not Reportable 02/02/19 08:41 Giant Platelets Not Reportable 02/02/19 08:41 Platelet Satelliting Not Reportable 02/02/19 08:41 Plt Morphology Comment Not Reportable 02/02/19 08:41 RBC Morphology Not Reportable 02/02/19 08:41 Dimorphic RBCs Not Reportable 02/02/19 08:41 Polychromasia Not Reportable 02/02/19 08:41 Hypochromasia Not Reportable 02/02/19 08:41 Poikilocytosis Few 02/02/19 08:41 Anisocytosis Few 02/02/19 08:41 Microcytosis Not Reportable 02/02/19 08:41 Macrocytosis Not Reportable 02/02/19 08:41 Spherocytes Not Reportable 02/02/19 08:41 Pappenheimer Bodies Not Reportable 02/02/19 08:41 Sickle Cells Not Reportable 02/02/19 08:41 Target Cells Not Reportable 02/02/19 08:41 Tear Drop Cells Not Reportable 02/02/19 08:41 Ovalocytes Not Reportable 02/02/19 08:41 Helmet Cells Not Reportable 02/02/19 08:41 Carbajal-[place] Bodies Not Reportable 02/02/19 08:41 [place] Rings Not Reportable 02/02/19 08:41 [place] Cells Not Reportable 02/02/19 08:41 Bite Cells Not Reportable 02/02/19 08:41 Crenated Cell Not Reportable 02/02/19 08:41 Elliptocytes Not Reportable 02/02/19 08:41 Acanthocytes (Spur) Not Reportable 02/02/19 08:41 Rouleaux Not Reportable 02/02/19 08:41 Hemoglobin C Crystals Not Reportable 02/02/19 08:41 Schistocytes Not Reportable 02/02/19 08:41 Malaria parasites Not Reportable 02/02/19 08:41 Homero Bodies Not Reportable 02/02/19 08:41 Hem Pathologist Commnt No 02/02/19 08:41 Sodium 139 mmol/L (137-145) 02/03/19 05:04 Potassium 4.3 mmol/L (3.6-5.0) 02/03/19 05:04 Chloride 102.3 mmol/L (98-107) 02/03/19 05:04 Carbon Dioxide 23 mmol/L (22-30) 02/03/19 05:04 Anion Gap 18 mmol/L 02/03/19 05:04 BUN 6 mg/dL (7-17) L 02/03/19 05:04 Creatinine 0.7 mg/dL (0.7-1.2) 02/03/19 05:04 Estimated GFR > 60 ml/min 02/03/19 05:04 BUN/Creatinine Ratio 9 % 02/03/19 05:04 Glucose 86 mg/dL (65-100) 02/03/19 05:04 Osmolality 288 Mosm/kg 02/03/19 01:46 Calcium 9.1 mg/dL (8.4-10.2) 02/03/19 05:04 Total Bilirubin 0.70 mg/dL (0.1-1.2) 02/03/19 01:46 AST 17 units/L (5-40) 02/03/19 01:46 ALT 9 units/L (7-56) 02/03/19 01:46 Alkaline Phosphatase 73 units/L (35-129) 02/03/19 01:46 Total Protein 7.0 g/dL (6.3-8.2) 02/03/19 01:46 Albumin 3.8 g/dL (3.9-5) L 02/03/19 01:46 Albumin/Globulin Ratio 1.2 % 02/03/19 01:46 HCG, Qual Negative (Negative) 02/02/19 08:41 Urine Color Yellow (Yellow) 02/02/19 Unknown Urine Turbidity Clear (Clear) 02/02/19 Unknown Urine pH 7.0 (5.0-7.0) 02/02/19 Unknown Ur Specific [place] 1.008 (1.003-1.030) 02/02/19 Unknown Urine Protein <15 mg/dl mg/dL (Negative) 02/02/19 Unknown Urine Glucose (UA) Neg mg/dL (Negative) 02/02/19 Unknown Urine Ketones Tr mg/dL (Negative) 02/02/19 Unknown Urine Blood Neg (Negative) 02/02/19 Unknown Urine Nitrite Neg (Negative) 02/02/19 Unknown Urine Bilirubin Neg (Negative) 02/02/19 Unknown Urine Urobilinogen < 2.0 mg/dL (<2.0) 02/02/19 Unknown Ur Leukocyte Esterase Neg (Negative) 02/02/19 Unknown Urine WBC (Auto) 2.0 /HPF (0.0-6.0) 02/02/19 Unknown Urine RBC (Auto) 1.0 /HPF (0.0-6.0) 02/02/19 Unknown U Epithel Cells (Auto) 3.0 /HPF (0-13.0) 02/02/19 Unknown Urine Bacteria (Auto) 1+ /HPF (Negative) 02/02/19 Unknown Urine Mucus Few /HPF 02/02/19 Unknown Salicylates < 0.3 mg/dL (2.8-20.0) L 02/02/19 08:41 Urine Opiates Screen Presumptive negative 02/03/19 08:30 Urine Methadone Screen Presumptive negative 02/03/19 08:30 Acetaminophen < 5.0 ug/mL (10.0-30.0) L 02/02/19 08:41 Ur Barbiturates Screen Presumptive negative 02/03/19 08:30 Ur Phencyclidine Scrn Presumptive negative 02/03/19 08:30 Ur Amphetamines Screen Presumptive negative 02/03/19 08:30 U Benzodiazepines Scrn Presumptive negative 02/03/19 08:30 Urine Cocaine Screen Presumptive negative 02/03/19 08:30 U Marijuana (THC) Screen Presumptive negative 02/03/19 08:30 Drugs of Abuse Note Disclamer 02/03/19 08:30 Plasma/Serum Alcohol < 0.01 % (0-0.07) 02/02/19 08:41 Active Medications - Current Medications Current Medications: Generic Name Dose Route Start Last Admin Trade Name Freq PRN Reason Stop Dose Admin Dextrose/Sodium Chloride 1,000 mls @ 75 mls/hr 02/02/19 16:00 02/05/19 07:01 D5/0.45ns IV 75 mls/hr DIRECT PERLITA Administration
--- NOTE | 2019-02-05 12:03 | Consultation ---
History of Present Illness - Reason for Consult Consult date: 02/05/19 Reason for consult: Mental Health Evaluation Requesting physician: ROB TALBOT - Chief Complaint Chief complaint: 'I was stressed" - History of Present Psychiatric Illness 43 y.o. white female who presented to the ER for suicide attempt by ingesting several Doxepin pills. Today the patient is calm and cooperative during the ass essment. She stated that the assisted staff stressed her out by yelling at her. She stated that she do not do well in a stressful situation, so she took several pills to kill herself prior to her arrival to the ER. She stated that she have attempted suicide in the past. She stated that she takes Doxepin and Cogentin as her home medication. She stated that she receive the monthly Invega injection for bipolar do. She stated that she is due her injection soon. She denies SI/HI's and AVH's. She denies erratic sleep and a ooor appetite. She denies recreational drug use and alcohol consumption (etoh). Medications and Allergies Allergies Allergy/AdvReac Type Severity Reaction Status Date / Time No Known Allergies Allergy Unverified 02/02/19 08:22 Home Medications Medication Instructions Recorded Confirmed Last Taken Type Benztropine [Cogentin] 1 mg PO QHS 02/02/19 02/02/19 Unknown History Divalproex ER [DepaKOTE ER] 1,000 mg PO QHS 02/02/19 02/02/19 Unknown History Doxepin [SINEquan] 100 mg PO QHS 02/02/19 02/02/19 Unknown History Active Meds: Active Medications Dextrose/Sodium Chloride (D5/0.45ns) 1,000 mls @ 75 mls/hr IV DIRECT PERLITA Last Admin: 02/05/19 07:01 Dose: 75 mls/hr Documented by: Mental Status Exam - Vital signs Last Vital Signs Temp 98.2 F 02/05/19 06:50 Pulse 88 02/05/19 06:50 Resp 16 02/05/19 06:50 BP 153/95 02/05/19 06:50 Pulse Ox 92 02/05/19 06:50 - Exam Narrative exam: MSE: Appearance: calm, cooperative Behavior: poor eye contact Speech: regular rate and tone Mood: "okay" Affect: congruent to mood Thought Process: circumstantial Thought Content: denies SI/HI and VH's Motor Activity: sitting up in bed Cognition: A/Ox 3 Insight: fair Judgment: variable to fair Results Result Diagrams: 02/02/19 08:41 02/03/19 05:04 All other labs normal. Assessment and Plan Assessment and plan: Impression: Hx of Bipolar Do per the patient. The patient is calm and cooperative during the assessment. The patient is hearing impaired in her left ear. Recommendation/Plan; Continue 1013. Dispo: The patient was accepted at [facility] for inpatient psy services. . Will staff with Dr Curtis Lazo.
[2019-02-05 12:09] VITALS: BP 138/86
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
== END 2019-02-05 13:05 | DRG 918 ==
LOC: ED 08:06 → CC1 10:30 → 3A 02-03 09:31
PROVIDERS: ADMIT Internal Medicine; ATTEND Internal Medicine
DX: T43.012A Poisoning by tricyclic antidepressants, intentional self-harm, initial encounter (principal); F17.200 Nicotine dependence, unspecified, uncomplicated; F32.9 Major depressive disorder, single episode, unspecified; Z91.5 Personal history of self-harm; Y92.098 Other place in other non-institutional residence as the place of occurrence of the external cause
CPT/HCPCS: 36415; 70450; 71045; 80048; 80053; 80307; 80320; 81001; 83930; 84703; 85007; 85025; 87116; 93005; 93010; G0378; G0480